=== PATIENT | male | born 1965 | race Caucasian/White ===

== ENCOUNTER 2022-03-10 15:41 | Inpatient (IN) | payer SELFPAY ==
--- NOTE | 2022-03-10 15:52 | Emergency Department Report ---
- General Chief complaint: Weakness Stated complaint: RT SIDE WEAKNESS PUI?: No Time Seen by Provider: 03/10/22 15:41 Source: patient, EMS Mode of arrival: Stretcher Limitations: Language Barrier - History of Present Illness Initial comments: Patient is a 57-year-old male that presents emergency room with complaints of right-sided weakness and right-sided facial droop. Patient states he also has slurred speech. Patient states that his weakness is worsening in his right side. Patient states his symptoms started last night approximately 10 PM. Patient denies chest pain. Patient denies pain. Patient denies shortness of breath. Patient denies headache. Patient complains of nausea and vomiting. Patient has difficulties understanding some of the questions and answering them because of the language barrier. Patient denies recent travel. Patient denies recent international travel. Patient denies exposure to the novel coronavirus. Patient denies sick contacts. Patient denies fever and chills. Patient denies cough. Patient denies diar rahul. Patient denies coming in contact with anybody with symptoms of the novel coronavirus. Complaint: focal weakness -: Sudden Location: R hand Severity: severe - Related Data Allergies Allergy/AdvReac Type Severity Reaction Status Date / Time No Known Allergies Allergy Verified 03/10/22 20:00 ED Review of Systems ROS: Stated complaint: RT SIDE WEAKNESS Other details as noted in HPI Comment: All other systems reviewed and negative ED Past Medical Hx - Past Medical History Previous Medical History?: Yes Hx Hypertension: Yes - Surgical History Past Surgical History?: No - Family History Family history: no significant - Social History Smoking Status: Never Smoker Substance Use Type: None ED Physical Exam - General Limitations: Language Barrier General appearance: alert, in no apparent distress - Head Head exam: Present: atraumatic, normocephalic - Eye Eye exam: Present: normal appearance - ENT ENT exam: Present: mucous membranes moist - Neck Neck exam: Present: normal inspection - Respiratory Respiratory exam: Present: normal lung sounds bilaterally. Absent: respiratory distress - Cardiovascular Cardiovascular Exam: Present: regular rate, normal rhythm. Absent: systolic murmur, diastolic murmur, rubs, gallop - GI/Abdominal GI/Abdominal exam: Present: soft, normal bowel sounds - Rectal Rectal exam: Present: deferred - Extremities Exam Extremities exam: Present: normal inspection - Back Exam Back exam: Present: normal inspection - Neurological Exam Neurological exam: Present: alert, oriented X3 - Psychiatric Psychiatric exam: Present: normal affect, normal mood - Skin Skin exam: Present: warm, dry, intact, normal color. Absent: rash - Assessment Assessment Interval: Baseline - Level of Consciousness 1a. Level of Consciousness: alert/keenly responsive - LOC Questions 1b. LOC Questions: answers both correctly - LOC Command 1c. LOC Commands: performs tasks correctly - Best Gaze 2. Best Gaze: normal - Visual 3. Visual: no visual loss - Facial Palsy 4. Facial Palsy: minor paralysis - Motor Arm 5a. Motor Arm Left: no drift 5b. Motor Arm Right: drift - Motor Leg 6a. Motor Leg Left: no drift 6b. Motor Leg Right: no drift - Limb Ataxia 7. Limb Ataxia: absent - Sensory 8. Sensory: normal - Best Language 9. Best Language: no aphasia - Dysarthria 10. Dysarthria: normal - Extinction and Inattention 11. Extinction/Inattention: no abnormality - Scoring Total Score: 2 Stroke Severity: Minor Stroke ED Course Vital Signs 03/10/22 03/10/22 03/10/22 16:09 16:10 16:16 Temperature 97.8 F Pulse Rate 86 83 83 Respiratory 18 15 16 Rate Blood Pressure 109/74 Blood Pressure 112/62 [Left] O2 Sat by Pulse 98 99 96 Oximetry 03/10/22 03/10/22 03/10/22 16:30 16:46 17:00 Temperature Pulse Rate 81 79 81 Respiratory 11 L 13 13 Rate Blood Pressure 88/56 104/69 99/62 Blood Pressure [Left] O2 Sat by Pulse 96 96 95 Oximetry 03/10/22 03/10/22 03/10/22 17:16 17:30 17:46 Temperature Pulse Rate 75 81 70 Respiratory 15 12 12 Rate Blood Pressure 99/67 102/72 101/69 Blood Pressure [Left] O2 Sat by Pulse 95 98 98 Oximetry 03/10/22 03/10/22 03/10/22 18:00 18:16 18:30 Temperature Pulse Rate 79 76 74 Respiratory 16 10 L 13 Rate Blood Pressure 97/60 91/59 94/63 Blood Pressure [Left] O2 Sat by Pulse 96 97 94 Oximetry 03/10/22 03/10/22 03/10/22 18:46 19:00 19:16 Temperature Pulse Rate 80 79 83 Respiratory 12 13 12 Rate Blood Pressure 96/69 99/69 98/68 Blood Pressure [Left] O2 Sat by Pulse 96 95 97 Oximetry 03/10/22 03/10/22 03/10/22 19:30 19:46 20:00 Temperature Pulse Rate 81 79 82 Respiratory 13 10 L 13 Rate Blood Pressure 107/74 93/57 93/59 Blood Pressure [Left] O2 Sat by Pulse 97 97 96 Oximetry 03/10/22 03/10/22 03/10/22 20:16 20:30 20:46 Temperature Pulse Rate 81 98 H 86 Respiratory 13 14 15 Rate Blood Pressure 92/65 103/70 95/65 Blood Pressure [Left] O2 Sat by Pulse 95 92 95 Oximetry 03/10/22 03/10/22 03/10/22 21:00 21:16 21:30 Temperature Pulse Rate 99 H 92 H 90 Respiratory 13 12 12 Rate Blood Pressure 100/70 111/77 106/74 Blood Pressure [Left] O2 Sat by Pulse 97 94 93 Oximetry 03/10/22 03/10/22 03/10/22 21:46 22:00 22:16 Temperature Pulse Rate 106 H 90 90 Respiratory 10 L 14 14 Rate Blood Pressure 100/72 105/72 102/69 Blood Pressure [Left] O2 Sat by Pulse 96 96 96 Oximetry 03/10/22 03/10/22 03/10/22 22:30 22:46 23:00 Temperature Pulse Rate 84 88 102 H Respiratory 13 19 12 Rate Blood Pressure 106/80 104/67 108/80 Blood Pressure [Left] O2 Sat by Pulse 94 95 97 Oximetry 03/10/22 23:16 Temperature Pulse Rate 84 Respiratory 14 Rate Blood Pressure 103/63 Blood Pressure [Left] O2 Sat by Pulse 97 Oximetry - Reevaluation(s) Reevaluation #1: Initial evaluation done. Code stroke was initiated prior to patient arrival. Patient evaluated in the EMS entrance. Patient was sent directly to CAT scan. 03/10/22 15:40 Reevaluation #2: Patient is hypotensive. Patient given normal saline. 03/10/22 17:20 Patient's blood pressure improved. 03/10/22 17:41 Reevaluation #3: Patient complains of coffee-ground emesis. Patient states his weakness is improving. 03/10/22 18:20 - Consultations Consultation #1: I discussed the case with neurology. Dr. Malik put a note in and placed his recommendations however Dr. Malik recommended Plavix and aspirin and the patient is currently having a GI bleed. Dr. Malik said to hold the Plavix and aspirin. Dr. Malik recommends admission for stroke work-up. 03/10/22 18:25 Consultation #2: Hospitalist consulted for admission. Hospitalist to admit patient. 03/10/22 18:34 ED Medical Decision Making - Lab Data Result diagrams: 03/10/22 16:10 03/10/22 16:10 - EKG Data -: EKG Interpreted by Dc EKG shows normal: sinus rhythm, axis, intervals, QRS complexes, ST-T waves Rate: normal - Radiology Data Radiology results: report reviewed CT head/brain wo con INDICATION: Stroke symptoms. TECHNIQUE: CT head. All CT scans at this location are performed using CT dose reduction for ALARA by means of automated exposure control. COMPARISON: None. FINDINGS: Intracranial: Remote lacunar infarctions seen within the left thalamus and the right sorensen radiata. Small quantity of periventricular and centrum semiovale white matter hypoattenuation most consistent with sequela of chronic microvascular disease. Gracia-white matter differentiation is maintained. No intracranial hemorrhage. No extra axial collection. No hydrocephalus. No herniation. Sinuses: Paranasal sinuses and mastoid air cells are essentially clear. Orbits: Globes are intact. Calvarium: No acute fracture. IMPRESSION: 1. No acute intracranial abnormality. 2. Remote left thalamic and right sorensen radiata lacunar infarctions. CT angio neck HISTORY: stroke sx 100ml of [id number] COMPARISON: None. TECHNIQUE: Routine CTA of the neck is performed. 3-D/MIP reformats were postprocessed. Percentage stenosis is determined by direct quantitative measurements of diseased internal carotid artery diameter compared with normal distal internal carotid artery reference segments or by criteria similar to NASCET where applicable. All CT scans at this location are performed using CT dose reduction for ALARA by means of automated exposure control. FINDINGS: Aortic arch: Ascending aorta is dilated measuring up to 4.4 cm.. Cervical vertebral arteries: No occlusion or hemodynamically significant stenosis. Common Carotid arteries: No occlusion or hemodynamically significant stenosis. Internal carotid arteries: No occlusion or hemodynamically significant steno sis. Additional findings: There are a couple of subpleural pulmonary nodules seen within the apical segment of the right upper lobe measuring up to approximately 9 mm. IMPRESSION: 1. No occlusion or significant stenosis of the carotid or vertebral arteries. 2. There are nodules seen within the apical segment right upper lobe measuring up to approximately 9 mm. Correlate with prior CT chest if available. If not, consider CT chest to further evaluate. . 3. Ascending aortic dilation measuring up to 4.[address] angio head HISTORY: stroke sx 100ml of [id number] COMPARISON: None. TECHNIQUE: CTA of the head is performed after IV contrast. 3-D/MIP reformats were postprocessed. Percentage stenosis is determined by direct quantitative measurements of diseased internal carotid artery diameter compared with normal distal internal carotid artery reference segments or by criteria similar to NASCET where applicable. All CT scans at this location are performed using CT dose reduction for ALARA by means of automated exposure control. FINDINGS: CTA HEAD: Intracranial internal carotid arteries: No occlusion or significant stenosis. Anterior cerebral arteries: No occlusion or significant stenosis. Middle cerebral arteries: No occlusion or significant stenosis. Intracranial vertebral arteries: No occlusion or significant stenosis. Basilar artery: No occlusion or significant stenosis. Posterior cerebral arteries: No occlusion or significant stenosis. No aneurysm. Additional findings: None. IMPRESSION: 1. CTA HEAD: No occlusion or significant stenosis of the major intracranial vasculature. - Medical Decision Making Patient is a 57-year-old male who presents emergency room with right-sided weakness and right-sided facial droop. Patient brought in by EMS. Patient's last known well time 9 PM the day before. Patient had a code stroke initiated upon initial evaluation. Patient went directly to CT. Patient CT of the head was negative. Patient also had a CTA of the head and neck and both were negat adri for large vessel occlusion. Neurology was consulted and evaluated the patient. Neurology recommended admission for stroke work-up as well as Lipitor, aspirin and Plavix. I discussed this with neurology and recommended we hold the Plavix and aspirin since the patient is actually having coffee-ground emesis and hypotension. Patient was hypotensive and the patient was given normal saline and his blood pressure improved. Patient started on a Protonix drip. Patient admitted to the hospitalist service for further evaluation and admission. I consulted GI prior to admission. Critical care time documented due to the multiple reassessments, prolonged time at the bedside, interpretation of diagnostics and labs. - Differential Diagnosis CVA, weakness, hypertension, coffee-ground emesis, GI bleed Critical Care Time: Yes Critical care time in (mins) excluding proc time.: 35 Critical care attestation.: If time is entered above; I have spent that time in minutes in the direct care of this critically ill patient, excluding procedure time. Critical Care Time: 35 minutes ED Disposition Clinical Impression: Right sided weakness, Facial droop, Coffee ground emesis Hypotension Qualifiers: Hypotension type: unspecified hypotension type Qualified Code(s): I95.9 - Hypotension, unspecified CVA (cerebral vascular accident) Qualifiers: CVA mechanism: unspecified Qualified Code(s): I63.9 - Cerebral infarction, unspecified Disposition: 09 ADMITTED INPATIENT Is pt being admited?: Yes Does the pt Need Aspirin: No Condition: Critical Time of Disposition: 18:37
--- NOTE | 2022-03-10 16:08 | Cat Scan Report ---
CT head/brain wo con INDICATION: Stroke symptoms. TECHNIQUE: CT head. All CT scans at this location are performed using CT dose reduction for ALARA by means of automated exposure control. COMPARISON: None. FINDINGS: Intracranial: Remote lacunar infarctions seen within the left thalamus and the right sorensen radiata. Small quantity of periventricular and centrum semiovale white matter hypoattenuation most consistent with sequela of chronic microvascular disease. Garcia-white matter differentiation is maintained. No i ntracranial hemorrhage. No extra axial collection. No hydrocephalus. No herniation. Sinuses: Paranasal sinuses and mastoid air cells are essentially clear. Orbits: Globes are intact. Calvarium: No acute fracture. IMPRESSION: 1. No acute intracranial abnormality. 2. Remote left thalamic and right sorensen radiata lacunar infarctions. I attempted to call [facility] and there was no answer. Signer Name: Rishi Luo MD Signed: 03/10/2022 4:03 PM Workstation Name: [id number]
--- NOTE | 2022-03-10 16:19 | Cat Scan Report ---
CT angio head HISTORY: stroke sx 100ml of [id number] COMPARISON: None. TECHNIQUE: CTA of the head is performed after IV contrast. 3-D/MIP reformats were postprocessed. Per centage stenosis is determined by direct quantitative measurements of diseased internal carotid arter y diameter compared with normal distal internal carotid artery reference segments or by criteria gary lar to NASCET where applicable. All CT scans at this location are performed using CT dose reduction f or ALARA by means of automated exposure control. FINDINGS: CTA HEAD: Intracranial internal carotid arteries: No occlusion or significant stenosis. Anterior cerebral arteries: No occlusion or significant stenosis. Middle cerebral arteries: No occlusion or significant stenosis. Intracranial vertebral arteries: No occlusion or significant stenosis. Basilar artery: No occlusion or significant stenosis. Posterior cerebral arteries: No occlusion or significant stenosis. No aneurysm. Additional findings: None. IMPRESSION: 1. CTA HEAD: No occlusion or significant stenosis of the major intracranial vasculature. Signer Name: Rishi Luo MD Signed: 03/10/2022 4:15 PM Workstation Name: [id number]
--- NOTE | 2022-03-10 16:22 | Cat Scan Report ---
CT angio neck HISTORY: stroke sx 100ml of [id number] COMPARISON: None. TECHNIQUE: Routine CTA of the neck is performed. 3-D/MIP reformats were postprocessed. Percentage st enosis is determined by direct quantitative measurements of diseased internal carotid artery diameter compared with normal distal internal carotid artery reference segments or by criteria similar to YOEL CET where applicable. All CT scans at this location are performed using CT dose reduction for ALARA b y means of automated exposure control. FINDINGS: Aortic arch: Ascending aorta is dilated measuring up to 4.4 cm.. Cervical vertebral arteries: No occlusion or hemodynamically significant stenosis. Common Carotid arteries: No occlusion or hemodynamically significant stenosis. Internal carotid arteries: No occlusion or hemodynamically significant stenosis. Additional findings: There are a couple of subpleural pulmonary nodules seen within the apical segmen t of the right upper lobe measuring up to approximately 9 mm. IMPRESSION: 1. No occlusion or significant stenosis of the carotid or vertebral arteries. 2. There are nodules seen within the apical segment right upper lobe measuring up to approximately 9 mm. Correlate with prior CT chest if available. If not, consider CT chest to further evaluate. . 3. Ascending aortic dilation measuring up to 4.4 cm. Signer Name: Rishi Luo MD Signed: 03/10/2022 4:18 PM Workstation Name: [id number]
[2022-03-10 17:05] LABS: Basophils % (Auto) 0.3 % (0.0-1.8); Eosinophils % (Auto) 0.3 % (0.0-4.3); Hematocrit 32.5 % (35.5-45.6); Hemoglobin 10.6 gm/dl (11.8-15.2); Lymphocytes # (Auto) 3.3 K/mm3 (1.2-5.4); Lymphocytes % (Auto) 49.4 % (13.4-35.0); Mean Corpuscular HGB Conc 33 % (32-34); Mean Corpuscular Volume 94 fl (84-94); Monocytes # (Auto) 0.5 K/mm3 (0.0-0.8); Monocytes % (Auto) 7.9 % (0.0-7.3); Platelet Count 130 K/mm3 (140-440); Red Blood Count 3.44 M/mm3 (3.65-5.03); Red Cell Distribution Width 14.1 % (13.2-15.2)
[2022-03-10 17:06] LABS: Creatine Kinase MB < 1.0 ng/mL (0.0-4.0)
[2022-03-10 17:08] LABS: Alanine Aminotransferase 67 units/L (7-56); Albumin 2.9 g/dL (3.9-5); BUN/Creatinine Ratio 54; Blood Urea Nitrogen 49 mg/dL (9-20); Calcium 8.4 mg/dL (8.4-10.2); Hemolysis Index 3; INR 1.04 (0.87-1.13)
[2022-03-10 17:09] LABS: Partial Thromboplastin Time 35.6 Sec. (24.2-36.6); Thrombin Time 20.5 Sec. (15.1-19.6)
--- NOTE | 2022-03-10 17:43 | Consultation ---
History of Present Illness History of present illness: [facility] Consult Note # Demographics Consult Type: Acute Stroke Level 1 (0-4.5 hrs) Patient Location: Emergency Room First Name: Jaylene Last Name: Date of : 1965 Age: 57 Gender: Male Facility: [facility] Time of Initial Page ( Time): 03/10/2022, 17:33 Time of Return Call ( Time): 03/10/2022, 17:33 # HPI Chief Complaint: weakness (focal) History: 57M with prior stroke (06/2021), HTN, HLD, DM presents with right-sided weakness and facial droop. Symptoms started sometime yesterday afternoon. # Scores Time of exam and NIHSS ( Time): 03/10/2022, 17:34 Level of Consciousness 1a: [0] = Alert; keenly responsive LOC Questions 1b: [0] = Answers both questions correctly LOC Commands 1c: [0] = Performs both tasks correctly Best Gaze 2: [0] = Normal Visual 3: [0] = No visual loss Facial Palsy 4: [2] = Partial paralysis Motor Arm Left 5a: [0] = No drift Motor Arm Right 5b: [1] = Drift Motor Leg Left 6a: [0] = No drift Motor Leg Right 6b: [0] = No drift Limb Ataxia 7: [0] = Absent Sensory 8: [0] = Normal Best Language 9: [0] = No aphasia Dysarthria 10: [0] = Normal Extinction and Inattention 11: [0] = No abnormality NIHSS Total: 3 # Data Head CT: no bleed per radiologist read CTA Head: no large vessel occlusion per radiologist read CTA Neck: patent vessels per radiologist read # Assessment Impression: Ischemic Stroke (Acute) # Plan Thrombolytic/Intervention: NOT IV Thrombolysis or IA Intervention candidate Thrombolytic Exclusion: > 4.5 hours Intraarterial Exclusion: no large vessel occlusion (LVO) Target Blood Pressure: SBP < 220 DBP < 105 Labs: hemoglobin A1c lipid panel Imaging: (urgency: routine): MRI Brain without contrast Diagnostic Test: echo with bubble study Therapy/Evaluation: PT/OT evaluation speech/swallow consultation Medication: ASA 325 x1 then 81 daily Plavix 300 x1 then 75 daily (3 weeks DAPT, then Plavix monotherapy) Atorvastatin 80, then tailor to LDL < 70 goal DVT Prophylaxis: SCD chemical DVT prophylaxis Other: If patient has any neurological deterioration please call me back immediately permissive hypertension telemetry monitoring I have discussed my recommendations with the referring provider Disposition: admit # Logistics Telemedicine: Interactive 2 way audio and visual telecommunication technology was utilized during this visit Electronically signed at 03/10/2022 17:43 (Eastern Time) by Lv Malik MD Physical Examination - Vital Signs Vital Signs: Vital Signs Temp Pulse Resp BP Pulse Ox 97.8 F 86 18 112/62 98 03/10/22 16:09 03/10/22 16:09 03/10/22 16:09 03/10/22 16:09 03/10/22 16:09 Results - Laboratory Findings CBC and BMP: 03/10/22 16:10 03/10/22 16:10 Abnormal Lab Findings: Abnormal Labs 03/10/22 03/10/22 03/10/22 16:10 16:10 16:10 RBC 3.44 L Hgb 10.6 L Hct 32.5 L Plt Count 130 L Lymph % (Auto) 49.4 H [place] % (Auto) 7.9 H PT 15.1 H Thrombin Time 20.5 H Carbon Dioxide 19 L BUN 49 H Glucose 222 H AST 55 H ALT 67 H Total Creatine Kinase 24 L CK-MB (CK-2) Rel Index 4.1 H Total Protein 5.6 L Albumin 2.9 L
[2022-03-10] MEDS ORDERED: PANTOPRAZOLE 80 MG in SODIUM CHLORIDE 0.9% 100 ML IV SCH (19:00)
[2022-03-10] MEDS ORDERED: METOCLOPRAMIDE 10 MG/2 ML INJ IV PRN (21:43)
[2022-03-10] MEDS ORDERED: ACETAMINOPHEN 325 MG TAB PO PRN (21:43)
[2022-03-10] MEDS ORDERED: MORPHINE 2 MG/1 ML INJ IV PRN (21:43)
[2022-03-10] MEDS ORDERED: oxyCODONE /ACETAMINOPHEN 5-325MG TAB PO PRN (21:43)
[2022-03-10] MEDS ORDERED: ONDANSETRON 4 MG/2 ML INJ IV PRN (21:43)
--- NOTE | 2022-03-10 21:43 | History and Physical Report ---
History of Present Illness Date of examination: 03/10/22 Date of admission: 03/10/2022 Chief complaint: Right-sided weakness since a.m. History of present illness: 57-year-old male with history of type 2 diabetes and hypertension, hyperlipidemia and BPH comes in for right-sided weakness and right facial droop which started apparently at around 10 PM yesterday. No syncope. Weakness has improved over the last 16 hours. No shortness of breath. No chest pain. Has difficulty walking. Tendency to fall present. No fever or chills. No recent travel. - Past Medical History Previous Medical History?: Yes --Hypertension: Yes - Surgical History Past Surgical History?: No - Family History Family history: no significant - Social History Smoking Status: Never Smoker Substance Use Type: None Review of Systems ROS: Constitutional no weight loss or weight gain no fever or chills HEENT no sore throat no post nasal drip no diplopia Neck no neck stiffness no lymph gland enlargement Chest and lungs no shortness of breath cough or wheezing CVS no chest pain no diaphoresis no palpitations GI no nausea no vomiting no diarrhea Genitourinary system no dysuria no flank pain Musculoskeletal system no muscle pains 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 Skin no rash no itching Psychiatric no depression no homicidal or suicidal tendencies Hematologic no lymphedema or bruising Endocrine no polydipsia no polyuria no cold intolerance no heat intolerance Medications and Allergies Allergies Allergy/AdvReac Type Severity Reaction Status Date / Time No Known Allergies Allergy Verified 03/10/22 20:00 Home Medications Medication Instructions Recorded Confirmed Last Taken Type AtorvaSTATin 40 mg PO QHS 03/11/22 03/11/22 Unknown History Dutasteride/Tamsulosin HCl 0.4 mg PO QHS 03/11/22 03/11/22 Unknown History FLUoxetine HCL 10 mg PO QDAY 03/11/22 03/11/22 Unknown History Finasteride 5 mg PO QDAY 03/11/22 03/11/22 Unknown History Metformin HCl 1,000 mg PO BID 03/11/22 03/11/22 Unknown History Metoprolol Tartrate 25 mg PO BID 03/11/22 03/11/22 Unknown History glipiZIDE 15 mg PO BID 03/11/22 03/11/22 Unknown History Active Meds: Active Medications Pantoprazole Sodium 80 mg/ (Sodium Chloride) 100 mls @ 10 mls/hr IV DIRECT SARA Exam - Constitutional Vitals: Temp Pulse Resp BP Pulse Ox 97.8 F 99 H 13 100/70 97 03/10/22 16:09 03/10/22 21:00 03/10/22 21:00 03/10/22 21:00 03/10/22 21:00 General appearance: Present: no acute distress, well-nourished - EENT Eyes: Present: PERRL ENT: hearing intact, clear oral mucosa - Neck Neck: Present: supple, normal ROM - Respiratory Respiratory effort: normal Respiratory: bilateral: CTA - Cardiovascular Heart rate: 78 Rhythm: regular Heart Sounds: Present: S1 & S2. Absent: rub, click - Extremities Extremities: pulses symmetrical, No edema Peripheral Pulses: within normal limits - Abdominal General gastrointestinal: Present: soft, non-tender, non-distended, normal bowel sounds Male genitourinary: Present: normal - Rectal Rectal Exam: deferred - Integumentary Integumentary: Present: clear, warm, dry - Musculoskeletal Musculoskeletal: right sided weakness - Psychiatric Psychiatric: appropriate mood/affect, intact judgment & insight - Neurologic Neurologic: CNII-XII intact, focal deficits (Right upper extremity and right lower extremity weakness. 3/5 power.), moves all extremities HEART Score - HEART Score Troponin: Troponin T < 0.010 ng/mL (0.00-0.029) 03/10/22 16:10 Results - Labs CBC & Chem 7: 03/11/22 05:15 03/11/22 05:15 Labs: Laboratory Last Values WBC 6.7 K/mm3 (4.5-11.0) 03/10/22 16:10 RBC 3.44 M/mm3 (3.65-5.03) L 03/10/22 16:10 Hgb 10.6 gm/dl (11.8-15.2) L 03/10/22 16:10 Hct 32.5 % (35.5-45.6) L 03/10/22 16:10 MCV 94 fl (84-94) 03/10/22 16:10 MCH 31 pg (28-32) 03/10/22 16:10 MCHC 33 % (32-34) 03/10/22 16:10 RDW 14.1 % (13.2-15.2) 03/10/22 16:10 Plt Count 130 K/mm3 (140-440) L 03/10/22 16:10 Lymph % (Auto) 49.4 % (13.4-35.0) H 03/10/22 16:10 [place] % (Auto) 7.9 % (0.0-7.3) H 03/10/22 16:10 Eos % (Auto) 0.3 % (0.0-4.3) 03/10/22 16:10 Baso % (Auto) 0.3 % (0.0-1.8) 03/10/22 16:10 Lymph # (Auto) 3.3 K/mm3 (1.2-5.4) 03/10/22 16:10 [place] # (Auto) 0.5 K/mm3 (0.0-0.8) 03/10/22 16:10 Eos # (Auto) 0.0 K/mm3 (0.0-0.4) 03/10/22 16:10 Baso # (Auto) 0.0 K/mm3 (0.0-0.1) 03/10/22 16:10 Seg Neutrophils % 42.1 % (40.0-70.0) 03/10/22 16:10 Seg Neutrophils # 2.8 K/mm3 (1.8-7.7) 03/10/22 16:10 PT 15.1 Sec. (12.2-14.9) H 03/10/22 16:10 INR 1.04 (0.87-1.13) 03/10/22 16:10 APTT 35.6 Sec. (24.2-36.6) 03/10/22 16:10 Thrombin Time 20.5 Sec. (15.1-19.6) H 03/10/22 16:10 Sodium 141 mmol/L (137-145) 03/10/22 16:10 Potassium 4.5 mmol/L (3.6-5.0) 03/10/22 16:10 Chloride 106.5 mmol/L (98-107) 03/10/22 16:10 Carbon Dioxide 19 mmol/L (22-30) L 03/10/22 16:10 Anion Gap 20 mmol/L 03/10/22 16:10 BUN 49 mg/dL (9-20) H 03/10/22 16:10 Creatinine 0.9 mg/dL (0.8-1.3) 03/10/22 16:10 Estimated GFR > 60 ml/min 03/10/22 16:10 BUN/Creatinine Ratio 54 % 03/10/22 16:10 Glucose 222 mg/dL (75-100) H 03/10/22 16:10 Calcium 8.4 mg/dL (8.4-10.2) 03/10/22 16:10 Total Bilirubin 0.50 mg/dL (0.1-1.2) 03/10/22 16:10 AST 55 units/L (5-40) H 03/10/22 16:10 ALT 67 units/L (7-56) H 03/10/22 16:10 Alkaline Phosphatase 88 units/L (35-129) 03/10/22 16:10 Total Creatine Kinase 24 units/L (55-170) L 03/10/22 16:10 CK-MB (CK-2) < 1.0 ng/mL (0.0-4.0) 03/10/22 16:10 CK-MB (CK-2) Rel Index 4.1 (0-4) H 03/10/22 16:10 Troponin T < 0.010 ng/mL (0.00-0.029) 03/10/22 16:10 Total Protein 5.6 g/dL (6.3-8.2) L 03/10/22 16:10 Albumin 2.9 g/dL (3.9-5) L 03/10/22 16:10 Albumin/Globulin Ratio 1.1 % 03/10/22 16:10 Short CBC 03/10/22 03/10/22 03/11/22 Range/Units 16:10 23:03 05:15 WBC 6.7 5.5 (4.5-11.0) K/mm3 Hgb 10.6 L 10.9 L 10.3 L (11.8-15.2) gm/dl Hct 32.5 L 32.5 L 31.5 L (35.5-45.6) % Plt Count 130 L 123 L (140-440) K/mm3 BMP 03/10/22 03/11/22 16:10 05:15 Sodium 141 143 Potassium 4.5 4.3 Chloride 106.5 110.2 H Carbon Dioxide 19 L 21 L BUN 49 H 39 H Creatinine 0.9 0.7 L Glucose 222 H 179 H Calcium 8.4 8.2 L Cardiac Enzymes 03/10/22 Range/Units 16:10 Total Creatine Kinase 24 L (55-170) units/L CK-MB (CK-2) < 1.0 (0.0-4.0) ng/mL Troponin T < 0.010 (0.00-0.029) ng/mL Liver Function 03/10/22 03/11/22 Range/Units 16:10 05:15 Total Bilirubin 0.50 0.50 (0.1-1.2) mg/dL AST 55 H 61 H (5-40) units/L ALT 67 H 70 H (7-56) units/L Alkaline Phosphatase 88 88 (35-129) units/L Albumin 2.9 L 3.2 L (3.9-5) g/dL Assessment and Plan Advance Directives: Yes (Full code) VTE prophylaxis?: Chemical Plan of care discussed with patient/family: Yes - Patient Problems (1) Acute CVA (cerebrovascular accident) Current Visit: Yes Status: Acute Plan to address problem: CVA protocol MRI echocardiogram pending Physical therapy and Occupational Therapy High-dose statins Aspirin initiated Neurology consult requested Neurochecks (2) Hypotension Current Visit: Yes Status: Acute Qualifiers: Hypotension type: idiopathic hypotension Qualified Code(s): I95.0 - Idiopathic hypotension Plan to address problem: IV fluids for now (3) T2DM (type 2 diabetes mellitus) Current Visit: Yes Status: Acute Qualifiers: 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 Plan to address problem: Continue oral hypoglycemics Coverage for now Check hemoglobin A1c (4) BPH (benign prostatic hyperplasia) Current Visit: Yes Status: Chronic Qualifiers: Lower urinary tract symptom presence: symptoms present Plan to address problem: Continue Flomax and finasteride (5) Hyperlipidemia Current Visit: Yes Status: Chronic Qualifiers: Hyperlipidemia type: mixed hyperlipidemia Qualified Code(s): E78.2 - Mixed hyperlipidemia Plan to address problem: Continue statins (6) Depression Current Visit: Yes Status: Chronic Qualifiers: Depression Type: unspecified Qualified Code(s): F32.A - Depression, unspecified Plan to address problem: Continue fluoxetine (7) DVT prophylaxis Current Visit: Yes Status: Acute Plan to address problem: On heparin and GI prophylaxis (8) Advance care planning Current Visit: Yes Status: Acute Plan to address problem: Disease education conducted, care plan discussed, diagnosis and prognosis discussed. Patient acknowledged understanding with care plan. +30 minutes.
[2022-03-10] MEDS ORDERED: SODIUM CHLORIDE 0.9% 1000 ML 1,000 ML IV SCH (21:45)
[2022-03-10] MEDS ORDERED: FAMOTIDINE 20 MG TAB PO SCH (22:00)
[2022-03-10] MEDS: PANTOPRAZOLE 40 MG INJ IV SCH (23:53)
[2022-03-10] MEDS: HEPARIN 5,000 UNIT/1 ML VIAL SUB-Q SCH (23:54)
[2022-03-11 00:08] LABS: Hematocrit 32.5 % (35.5-45.6); Hemoglobin 10.9 gm/dl (11.8-15.2)
[2022-03-11 05:35] LABS: Basophils % (Auto) 0.3 % (0.0-1.8); Eosinophils % (Auto) 0.6 % (0.0-4.3); Hematocrit 31.5 % (35.5-45.6); Hemoglobin 10.3 gm/dl (11.8-15.2); Lymphocytes # (Auto) 2.8 K/mm3 (1.2-5.4); Lymphocytes % (Auto) 50.6 % (13.4-35.0); Mean Corpuscular HGB Conc 33 % (32-34); Mean Corpuscular Volume 94 fl (84-94); Monocytes # (Auto) 0.4 K/mm3 (0.0-0.8); Monocytes % (Auto) 6.8 % (0.0-7.3); Platelet Count 123 K/mm3 (140-440); Red Blood Count 3.35 M/mm3 (3.65-5.03); Red Cell Distribution Width 14.2 % (13.2-15.2)
[2022-03-11 06:40] LABS: Alanine Aminotransferase 70 units/L (7-56); Albumin 3.2 g/dL (3.9-5); BUN/Creatinine Ratio 56; Blood Urea Nitrogen 39 mg/dL (9-20); Calcium 8.2 mg/dL (8.4-10.2); Chol/HDL Ratio 3.39 %; HDL Cholesterol 23 mg/dL (40-59); Hemolysis Index 37; LDL Cholesterol,Direct 30 mg/dL (50-130)
[2022-03-11] MEDS ORDERED: NON-FORMULARY EACH (Finasteride 5 MG) PO SCH (10:00)
[2022-03-11] MEDS ORDERED: FLUOXETINE HCL 10 MG PO SCH (10:00)
[2022-03-11] MEDS ORDERED: glipiZIDE 5 MG TAB PO SCH (10:00)
[2022-03-11] MEDS ORDERED: METFORMIN HCL 1000 MG PO SCH (10:00)
[2022-03-11] MEDS ORDERED: NON-FORMULARY EACH (Metoprolol Tartrate 25 MG) PO SCH (10:00)
[2022-03-11] MEDS ORDERED: GLIPIZIDE 5 MG PO SCH (10:00)
[2022-03-11] MEDS: FINASTERIDE 5 MG TAB PO SCH (10:09)
[2022-03-11] MEDS: PANTOPRAZOLE 40 MG INJ IV SCH ×2 (10:09→22:09)
[2022-03-11] MEDS: FLUoxetine 10 MG TAB PO SCH (10:09)
[2022-03-11] MEDS: metFORMIN 500 MG TAB PO SCH ×2 (10:09→17:32)
[2022-03-11] MEDS: HEPARIN 5,000 UNIT/1 ML VIAL SUB-Q SCH ×2 (10:09→22:04)
[2022-03-11] MEDS: METOPROLOL TARTRATE 25 MG TAB PO SCH ×2 (10:15→22:04)
--- NOTE | 2022-03-11 11:48 | Electrocardiograph Report ---
[facility] Test Date: 2022-03-10 Test Time: 16:22:07 Pat Name: STEPHEN BECERRIL Department: Room: A474 1 Gender: M Lead Network Engineer: RANDALL : 1965 Requested By: ALICE CALVO III Order Number: [id number] Reading MD: Jacobo Blankenship Measurements Intervals [place] Rate: 78 P: 33 [place]: 176 QRS: 13 QRSD: 87 T: 10 QT: 452 QTc: 516 Interpretive Statements Sinus rhythm Prolonged QT interval No previous ECG available for comparison Electronically Signed On 03-11-2022 11:48:19 EDT by Jacobo Blankenship
--- NOTE | 2022-03-11 12:31 | Gastroenterology Consultation ---
History of Present Illness - Reason for Consult Consult date: 03/11/22 GI bleed Requesting physician: ALICE CALVO III - History of Present Illness This is a 57-year-old male with history of CVA earlier this year with residual weakness presented over night to the emergency room for worsening right-sided weakness and right-sided facial droop. Patient was getting worked up for CVA with neurology consult in the emergency room. Noted to have episode of coffee-ground emesis in the emergency room. GI consulted for evaluation for GI bleed. Patient reports having epigastric pain on and off for several days. Also reports having nausea vomiting with coffee-ground emesis prior to emergency room evaluation. Patient does report having black stools about once a day for the past 2 to 3 days. Last bowel movement was yesterday. This morning denies any abdominal pain today. No vomiting episodes overnight. Patient was on aspirin 81 mg at home. No prior history of GI bleed. No prior EGD or colonoscopy. Denies any NSAID use. Medication list reviewed. Past History Past Medical History: stroke Social history: lives with family Family history: no significant family history Medications and Allergies Allergies Allergy/AdvReac Type Severity Reaction Status Date / Time No Known Allergies Allergy Verified 03/10/22 20:00 Home Medications Medication Instructions Recorded Confirmed Last Taken Type AtorvaSTATin 40 mg PO QHS 03/11/22 03/11/22 Unknown History Dutasteride/Tamsulosin HCl 0.4 mg PO QHS 03/11/22 03/11/22 Unknown History FLUoxetine HCL 10 mg PO QDAY 03/11/22 03/11/22 Unknown History Finasteride 5 mg PO QDAY 03/11/22 03/11/22 Unknown History Metformin HCl 1,000 mg PO BID 03/11/22 03/11/22 Unknown History Metoprolol Tartrate 25 mg PO BID 03/11/22 03/11/22 Unknown History glipiZIDE 15 mg PO BID 03/11/22 03/11/22 Unknown History Active Meds: Active Medications Acetaminophen (Acetaminophen 325 Mg Tab) 650 mg PO Q4H PRN PRN Reason: Pain MILD(1-3)/Fever >100.5/BARROW Atorvastatin Calcium (Atorvastatin 40 Mg Tab) 40 mg PO QHS [facility] Last Admin: 03/11/22 00:01 Dose: 40 mg Finasteride (Finasteride 5 Mg Tab) 5 mg PO QDAY [facility] Last Admin: 03/11/22 10:09 Dose: 5 mg Fluoxetine HCl (Fluoxetine 10 Mg Tab) 10 mg PO QDAY [facility] Last Admin: 03/11/22 10:09 Dose: 10 mg Glipizide (Glipizide 5 Mg Tab) 5 mg PO BIDDIAB [facility] Heparin Sodium (Porcine) (Heparin 5,000 Unit/1 Ml Vial) 5,000 unit SUB-Q Q12HR [facility] Last Admin: 03/11/22 10:09 Dose: 5,000 unit Sodium Chloride (Nacl 0.9% 1000 Ml) 1,000 mls @ 75 mls/hr IV DIRECT [facility] Last Admin: 03/11/22 03:07 Dose: 75 mls/hr Metformin HCl (Metformin 500 Mg Tab) 1,000 mg PO BIDDIAB [facility] Last Admin: 03/11/22 10:09 Dose: 1,000 mg Metoclopramide HCl (Metoclopramide 10 Mg/2 Ml Inj) 10 mg IV Q6H PRN PRN Reason: Nausea And Vomiting Metoprolol Tartrate (Metoprolol Tartrate 25 Mg Tab) 25 mg PO BID [facility] Last Admin: 03/11/22 10:15 Dose: 25 mg Morphine Sulfate (Morphine 2 Mg/1 Ml Inj) 2 mg IV Q4H PRN PRN Reason: Pain, Moderate (4-6) Ondansetron HCl (Ondansetron 4 Mg/2 Ml Inj) 4 mg IV Q3H PRN PRN Reason: Nausea And Vomiting Oxycodone/Acetaminophen (Oxycodone /Acetaminophen 5-325mg Tab) 1 tab PO Q6H PRN PRN Reason: Pain, Moderate (4-6) Pantoprazole Sodium (Pantoprazole 40 Mg Inj) 40 mg IV Q12H [facility] Last Admin: 03/11/22 10:09 Dose: 40 mg Sodium Chloride (Sodium Chloride 0.9% 10 Ml Flush Syringe) 10 ml IV BID [facility] Last Admin: 03/11/22 10:09 Dose: 10 ml Sodium Chloride (Sodium Chloride 0.9% 10 Ml Flush Syringe) 10 ml IV PRN PRN PRN Reason: LINE FLUSH Tamsulosin HCl (Tamsulosin 0.4 Mg Cap) 0.4 mg PO QHS [facility] Review of Systems - Review of Systems All systems: negative Constitutional: no fever, no chills Ears, Nose, Throat: no decreased hearing, no difficulty swallowing Cardiovascular: no chest pain Gastrointestinal: abdominal pain, nausea, vomiting, melena, no hematochezia Neurological: weakness, motor disturbance Endocrine: no cold intolerance Hematologic/Lymphatic: no easy bruising Allergic/Immunologic: no wheezing Exam - Constitutional Vital Signs: Temp Pulse Resp BP Pulse Ox 98.1 F 87 16 131/83 95 03/11/22 02:10 03/11/22 10:15 03/11/22 02:10 03/11/22 10:15 03/11/22 05:49 General appearance: no acute distress - EENT ENT: hearing intact - Neck Neck: supple - Respiratory Respiratory effort: normal - Cardiovascular Rhythm: regular Heart Sounds: Present: S1 & S2 - Gastrointestinal General gastrointestinal: Present: soft, non-tender, non-distended - Integumentary Integumentary: Present: clear, warm - Neurologic Neurological: alert and oriented x3 - Psychiatric Psychiatric: appropriate mood/affect - Labs CBC & Chem 7: 03/11/22 05:15 03/11/22 05:15 Lab Results: Laboratory Results - last 24 hr 03/10/22 03/10/22 03/10/22 16:10 16:10 16:10 WBC 6.7 RBC 3.44 L Hgb 10.6 L Hct 32.5 L MCV 94 MCH 31 MCHC 33 RDW 14.1 Plt Count 130 L Lymph % (Auto) 49.4 H [place] % (Auto) 7.9 H Eos % (Auto) 0.3 Baso % (Auto) 0.3 Lymph # (Auto) 3.3 [place] # (Auto) 0.5 Eos # (Auto) 0.0 Baso # (Auto) 0.0 Seg Neutrophils % 42.1 Seg Neutrophils # 2.8 PT 15.1 H INR 1.04 APTT 35.6 Thrombin Time 20.5 H Sodium 141 Potassium 4.5 Chloride 106.5 Carbon Dioxide 19 L Anion Gap 20 BUN 49 H Creatinine 0.9 Estimated GFR > 60 BUN/Creatinine Ratio 54 Glucose 222 H POC Glucose Hemoglobin A1c Calcium 8.4 Total Bilirubin 0.50 AST 55 H ALT 67 H Alkaline Phosphatase 88 Total Creatine Kinase 24 L CK-MB (CK-2) < 1.0 CK-MB (CK-2) Rel Index 4.1 H Troponin T < 0.010 Total Protein 5.6 L Albumin 2.9 L Albumin/Globulin Ratio 1.1 Triglycerides Cholesterol LDL Cholesterol Direct HDL Cholesterol Cholesterol/HDL Ratio 03/10/22 03/11/22 03/11/22 23:03 05:15 05:15 WBC 5.5 RBC 3.35 L Hgb 10.9 L 10.3 L Hct 32.5 L 31.5 L MCV 94 MCH 31 MCHC 33 RDW 14.2 Plt Count 123 L Lymph % (Auto) 50.6 H [place] % (Auto) 6.8 Eos % (Auto) 0.6 Baso % (Auto) 0.3 Lymph # (Auto) 2.8 [place] # (Auto) 0.4 Eos # (Auto) 0.0 Baso # (Auto) 0.0 Seg Neutrophils % 41.7 Seg Neutrophils # 2.3 PT INR APTT Thrombin Time Sodium 143 Potassium 4.3 Chloride 110.2 H Carbon Dioxide 21 L Anion Gap 16 BUN 39 H Creatinine 0.7 L Estimated GFR > 60 BUN/Creatinine Ratio 56 Glucose 179 H POC Glucose Hemoglobin A1c Calcium 8.2 L Total Bilirubin 0.50 AST 61 H ALT 70 H Alkaline Phosphatase 88 Total Creatine Kinase CK-MB (CK-2) CK-MB (CK-2) Rel Index Troponin T Total Protein 6.1 L Albumin 3.2 L Albumin/Globulin Ratio 1.1 Triglycerides 157 H Cholesterol 78 LDL Cholesterol Direct 30 L HDL Cholesterol 23 L Cholesterol/HDL Ratio 3.39 03/11/22 03/11/22 03/11/22 07:22 11:20 12:09 WBC RBC Hgb Hct MCV MCH MCHC RDW Plt Count Lymph % (Auto) [place] % (Auto) Eos % (Auto) Baso % (Auto) Lymph # (Auto) [place] # (Auto) Eos # (Auto) Baso # (Auto) Seg Neutrophils % Seg Neutrophils # PT INR APTT Thrombin Time Sodium Potassium Chloride Carbon Dioxide Anion Gap BUN Creatinine Estimated GFR BUN/Creatinine Ratio Glucose POC Glucose 184 H 250 H Hemoglobin A1c 7.4 H Calcium Total Bilirubin AST ALT Alkaline Phosphatase Total Creatine Kinase CK-MB (CK-2) CK-MB (CK-2) Rel Index Troponin T Total Protein Albumin Albumin/Globulin Ratio Triglycerides Cholesterol LDL Cholesterol Direct HDL Cholesterol Cholesterol/HDL Ratio Assessment and Plan # Coffee ground emesis # Abdominal pain # Melena - concerning for upper GI bleed. - patient being evaluated for possible CVA. -Initially hypotensive in the emergency room but responded to IV fluids and currently normal blood pressure and hemodynamically stable. -Hemoglobin at 10 and stable overnight. -Differentials for upper GI bleed source including peptic ulcer disease, gastritis, esophagitis, malignancy. Rec -Continue with PPI IV twice daily. -Continue to monitor hemoglobin serially and transfuse as needed with hemoglobin goal above 7. -Avoid any NSAIDs. -We will plan for EGD timing to be determined on clinical course. Tentatively for Sunday. # Elevated LFTs - no prior h/o liver disease - will check viral hep panel - will order RUQ US - will follow. - Patient Problems (1) Coffee ground emesis Current Visit: Yes Status: Acute
[2022-03-11 14:51] LABS: Hemoglobin 8.9 gm/dl (11.8-15.2)
[2022-03-11] MEDS: glipiZIDE 5 MG TAB PO SCH (17:32)
[2022-03-11] MEDS ORDERED: NON-FORMULARY EACH (Atorvastatin 40 MG) PO SCH (22:00)
[2022-03-11] MEDS ORDERED: TAMSULOSIN HCL 0.4 MG PO SCH (22:00)
[2022-03-11] MEDS: TAMSULOSIN 0.4 MG CAP PO SCH (22:04)
[2022-03-12 06:23] LABS: Hematocrit 26.5 % (35.5-45.6)
[2022-03-12 07:14] LABS: Hepatitis B Surface Antigen Reactive (Negative); Hepatitis C Virus Antibody Non-Reactive (NonReactive)
--- NOTE | 2022-03-12 07:30 | Progress Note ---
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 Plan to address problem: Continue oral hypoglycemics Coverage for now Check hemoglobin A1c (4) BPH (benign prostatic hyperplasia) Current Visit: Yes Status: Chronic Qualifiers: Lower urinary tract symptom presence: symptoms present Plan to address problem: Continue Flomax and finasteride (5) Hyperlipidemia Current Visit: Yes Status: Chronic Qualifiers: Hyperlipidemia type: mixed hyperlipidemia Qualified Code(s): E78.2 - Mixed hyperlipidemia Plan to address problem: Continue statins (6) Depression Current Visit: Yes Status: Chronic Qualifiers: Depression Type: unspecified Qualified Code(s): F32.A - Depression, unspecified Plan to address problem: Continue fluoxetine (7) DVT prophylaxis Current Visit: Yes Status: Acute Plan to address problem: On heparin and GI prophylaxis (8) Advance care planning Current Visit: Yes Status: Acute Plan to address problem: Disease education conducted, care plan discussed, diagnosis and prognosis discussed. Patient acknowledged understanding with care plan. +30 minutes. Subjective Date of service: 03/11/22 Objective - Constitutional Vitals: Vital Signs - 12hr 03/11/22 03/12/22 03/12/22 20:54 01:00 04:02 Temperature 98.6 F Pulse Rate 81 70 Respiratory 16 Rate Blood Pressure 133/84 O2 Sat by Pulse 98 98 Oximetry 03/12/22 04:24 Temperature 97.5 F L Pulse Rate 77 Respiratory 16 Rate Blood Pressure 93/58 O2 Sat by Pulse 97 Oximetry General appearance: Present: no acute distress, well-nourished - EENT Eyes: PERRL, EOM intact ENT: hearing intact, clear oral mucosa Ears: bilateral: normal - Neck Neck: supple, normal ROM - Respiratory Respiratory effort: normal Respiratory: bilateral: CTA - Breasts Breasts: normal - Cardiovascular Rhythm: regular Heart Sounds: Present: S1 & S2. Absent: gallop, rub Extremities: pulses intact, No edema, normal color, Full ROM - Gastrointestinal General gastrointestinal: Present: soft, non-tender, non-distended, normal bowel sounds - Genitourinary Male genitourinary: normal - Integumentary Integumentary: clear, warm, dry - Musculoskeletal Musculoskeletal: 1, strength equal bilaterally - Neurologic Neurologic: moves all extremities - Psychiatric Psychiatric: memory intact, appropriate mood/affect, intact judgment & insight - Labs CBC & Chem 7: 03/12/22 05:35 03/11/22 05:15 Labs: Abnormal lab results 03/11/22 03/11/22 03/11/22 Range/Units 07:22 11:20 12:09 Hgb (11.8-15.2) gm/dl Hct (35.5-45.6) % POC Glucose 184 H 250 H (70-105) mg/dL Hemoglobin A1c 7.4 H (4-6) % 03/11/22 03/11/22 03/11/22 Range/Units 13:49 16:45 20:23 Hgb 8.9 L (11.8-15.2) gm/dl Hct 26.0 L (35.5-45.6) % POC Glucose 159 H 149 H (70-105) mg/dL Hemoglobin A1c (4-6) % 03/12/22 Range/Units 05:35 Hgb 9.0 L (11.8-15.2) gm/dl Hct 26.5 L (35.5-45.6) % POC Glucose (70-105) mg/dL Hemoglobin A1c (4-6) % HEART Score - HEART Score Troponin: Troponin T < 0.010 ng/mL (0.00-0.029) 03/10/22 16:10
--- NOTE | 2022-03-12 08:59 | Cat Scan Report ---
CT ABDOMEN AND PELVIS WITH CONTRAST HISTORY: abdominal pain. Generalized abdominal pain for the past 3 days, vomiting COMPARISON: None. TECHNIQUE: CT images of the abdomen and pelvis were obtained following administration of intravenous contrast. All CT scans at this location are performed using CT dose reduction for ALARA by means of automated exposure control. CONTRAST: 100 ml of intravenous contrast administered. FINDINGS: Lungs/bones: A few scattered pulmonary nodules are present in the lung bases the largest of which me asures 5 mm in the right lower lobe on image 28 of series 2 and another measuring 5 mm in the left lo wer lobe on image 13. No consolidation or pleural effusion. There are degenerative changes in the lum bar spine with no acute osseous abnormality. Abdomen/pelvis: 1.2 cm hypodensity in the right anterior hepatic segment with mildly nodular appeara nce of the liver caudate hypertrophy. This is not clearly a cyst. The gallbladder, pancreas, spleen, adrenals, kidneys, and proximal GI tract appear unremarkable. Prostate is enlarged and indents the bladder base. Bladder is otherwise unremarkable. No pelvic free fluid and no acute colonic abnormality identified. The appendix and terminal ileum appear normal. IMPRESSION: 1. No acute abnormality identified. 2. Incidental findings as above including probable cirrhotic morphology of the liver with indetermina te hypodensity in the anterior segment. Recommend nonemergent three-phase CT liver for follow-up. 3. Pulmonary nodules in both lung bases measuring up to 5 mm. Please see below recommendations. Multiple incidental pulmonary nodule(s) in both lung bases measuring 5 mm with solid characteristics. Recommendation according to Fleischner Society 2017 Guidelines: Low Risk Patient: No routine follow- up; High Risk Patient: Optional CT at 12 months. Signer Name: Von Curtis MD Signed: 03/12/2022 8:55 AM Workstation Name: [id number]
[2022-03-12 09:47] LABS: Alanine Aminotransferase 64 units/L (7-56); Albumin 2.9 g/dL (3.9-5); Blood Urea Nitrogen 19 mg/dL (9-20); Calcium 7.8 mg/dL (8.4-10.2); Hemolysis Index 3
[2022-03-12 09:48] LABS: BUN/Creatinine Ratio 27
[2022-03-12] MEDS: glipiZIDE 5 MG TAB PO SCH ×2 (10:19→16:17)
[2022-03-12] MEDS: HEPARIN 5,000 UNIT/1 ML VIAL SUB-Q SCH ×2 (10:19→22:06)
[2022-03-12] MEDS: METOPROLOL TARTRATE 25 MG TAB PO SCH ×2 (10:19→22:05)
[2022-03-12] MEDS: FINASTERIDE 5 MG TAB PO SCH (10:19)
[2022-03-12] MEDS: metFORMIN 500 MG TAB PO SCH ×2 (10:19→16:17)
[2022-03-12] MEDS: FLUoxetine 10 MG TAB PO SCH (10:20)
[2022-03-12] MEDS: PANTOPRAZOLE 40 MG INJ IV SCH ×2 (10:22→22:05)
--- NOTE | 2022-03-12 10:53 | Gastroenterology Progress Note ---
Assessment and Plan # Coffee ground emesis # Abdominal pain # Melena - concerning for upper GI bleed. - patient being evaluated for possible CVA. -No recurrent episodes of GI bleeding overnight. -Hemoglobin stable at 9. -Hemodynamically stable. -Suspect upper GI bleed possibly peptic ulcer disease versus variceal bleed. Rec -Continue with PPI IV twice daily. - recommend octreotide drip IV. -Continue to monitor hemoglobin serially and transfuse as needed with hemoglobin goal above 7. -Avoid any NSAIDs. -We will plan for EGD tomorrow. Keep n.p.o. after midnight. Clear liquid diet today. # Elevated LFTs - no prior h/o liver disease -CT abdomen pelvis done and showed mild nodular appearance of the liver, no splenomegaly, no ascites. Focus in the liver with unclear etiology. Recommended to have CT liver protocol triple phase. No large varices noted on the CT scan. Discussed findings with radiology over the phone. -Hepatitis B surface antigen was positive. Will order additional serology labs for hepatitis chronic infection evaluation. - will follow. - Patient Problems (1) Coffee ground emesis Current Visit: Yes Status: Acute Subjective Date of service: 03/12/22 Interval history: Patient reports mild abdominal pain after eating. No nausea vomiting. No bowel movement overnight. Objective - Constitutional Vitals: Temp Pulse Resp BP Pulse Ox 97.5 F L 77 16 93/58 97 03/12/22 04:24 03/12/22 04:24 03/12/22 04:24 03/12/22 04:24 03/12/22 04:24 General appearance: no acute distress - EENT Eyes: EOM intact ENT: hearing intact - Neck Neck: supple - Respiratory Respiratory effort: normal - Cardiovascular Rhythm: regular Heart Sounds: Present: S1 & S2 - Gastrointestinal General gastrointestinal: Present: soft, non-tender, non-distended - Neurologic Neurological: alert and oriented x3 - Psychiatric Psychiatric: appropriate mood/affect - Labs CBC & Chem 7: 03/12/22 05:35 03/12/22 07:49 Labs: Laboratory Results - last 24 hr 03/11/22 03/11/22 03/11/22 11:20 12:09 13:49 Hgb 8.9 L Hct 26.0 L Sodium Potassium Chloride Carbon Dioxide Anion Gap BUN Creatinine Estimated GFR BUN/Creatinine Ratio Glucose POC Glucose 250 H Hemoglobin A1c 7.4 H Calcium Total Bilirubin AST ALT Alkaline Phosphatase Total Protein Albumin Albumin/Globulin Ratio Hepatitis A IgM Ab Hep Bs Antigen Hep B Core IgM Ab Hepatitis C Antibody 03/11/22 03/11/22 03/12/22 16:45 20:23 05:35 Hgb 9.0 L Hct 26.5 L Sodium Potassium Chloride Carbon Dioxide Anion Gap BUN Creatinine Estimated GFR BUN/Creatinine Ratio Glucose POC Glucose 159 H 149 H Hemoglobin A1c Calcium Total Bilirubin AST ALT Alkaline Phosphatase Total Protein Albumin Albumin/Globulin Ratio Hepatitis A IgM Ab Hep Bs Antigen Hep B Core IgM Ab Hepatitis C Antibody 03/12/22 03/12/22 05:35 07:49 Hgb Hct Sodium 135 L D Potassium 4.0 Chloride 102.6 Carbon Dioxide 24 Anion Gap 12 BUN 19 Creatinine 0.7 L Estimated GFR > 60 BUN/Creatinine Ratio 27 Glucose 196 H POC Glucose Hemoglobin A1c Calcium 7.8 L Total Bilirubin 0.50 AST 53 H ALT 64 H Alkaline Phosphatase 78 Total Protein 5.4 L Albumin 2.9 L Albumin/Globulin Ratio 1.2 Hepatitis A IgM Ab Non-reactive Hep Bs Antigen Reactive Hep B Core IgM Ab Non-reactive Hepatitis C Antibody Non-reactive - Imaging CT scan: report reviewed
[2022-03-12] MEDS ORDERED: OCTREOTIDE 50 MCG/1 ML INJ IV ONE (11:30)
[2022-03-12] MEDS: OCTREOTIDE 500 MCG in SODIUM CHLORIDE 0.9% 100 ML IV SCH (12:30)
[2022-03-12 13:50] LABS: INR 0.88 (0.87-1.13)
[2022-03-12] MEDS: TAMSULOSIN 0.4 MG CAP PO SCH (22:06)
[2022-03-13] MEDS: OCTREOTIDE 500 MCG in SODIUM CHLORIDE 0.9% 100 ML IV SCH (03:28)
--- NOTE | 2022-03-13 07:07 | Progress Note ---
Assessment and Plan - Patient Problems (1) GI bleed Current Visit: Yes Status: Acute Plan to address problem: For EGD in Am IV Protonix (2) Acute CVA (cerebrovascular accident) Current Visit: Yes Status: Acute Plan to address problem: CVA protocol MRI echocardiogram pending Physical therapy and Occupational Therapy High-dose statins Aspirin initiated Neurology consult requested Neurochecks (3) Hypotension Current Visit: Yes Status: Acute Qualifiers: Hypotension type: idiopathic hypotension Qualified Code(s): I95.0 - Idiopathic hypotension Plan to address problem: IV fluids for now (4) T2DM (type 2 diabetes mellitus) Current Visit: Yes Status: Acute Qualifiers: Diabetes mellitus predatory animal exterminator insulin use: without fpc use Plan to address problem: Continue oral hypoglycemics Coverage for now Check hemoglobin A1c (5) BPH (benign prostatic hyperplasia) Current Visit: Yes Status: Chronic Qualifiers: Lower urinary tract symptom presence: symptoms present Plan to address problem: Continue Flomax and finasteride (6) Hyperlipidemia Current Visit: Yes Status: Chronic Qualifiers: Hyperlipidemia type: mixed hyperlipidemia Qualified Code(s): E78.2 - Mixed hyperlipidemia Plan to address problem: Continue statins (7) Depression Current Visit: Yes Status: Chronic Qualifiers: Depression Type: unspecified Qualified Code(s): F32.A - Depression, unspecified Plan to address problem: Continue fluoxetine (8) DVT prophylaxis Current Visit: Yes Status: Acute Plan to address problem: On heparin and GI prophylaxis (9) Advance care planning Current Visit: Yes Status: Acute Plan to address problem: Disease education conducted, care plan discussed, diagnosis and prognosis discussed. Patient acknowledged understanding with care plan. +30 minutes. Subjective Date of service: 03/12/22 Objective - Constitutional Vitals: Vital Signs - 12hr 03/12/22 03/12/22 03/12/22 19:37 20:05 21:10 Temperature 98.7 F Pulse Rate 67 69 Respiratory 18 Rate Blood Pressure 152/86 O2 Sat by Pulse 95 98 Oximetry 03/13/22 03/13/22 03/13/22 00:00 00:34 05:12 Temperature 98.6 F 98.6 F Pulse Rate 72 64 Respiratory 18 18 Rate Blood Pressure 127/83 136/85 O2 Sat by Pulse 95 96 Oximetry General appearance: Present: no acute distress, well-nourished - EENT Eyes: PERRL, EOM intact ENT: hearing intact, clear oral mucosa Ears: bilateral: normal - Neck Neck: supple, normal ROM - Respiratory Respiratory effort: normal Respiratory: bilateral: CTA - Breasts Breasts: normal - Cardiovascular Rhythm: regular Heart Sounds: Present: S1 & S2. Absent: gallop, rub Extremities: pulses intact, No edema, normal color, Full ROM - Gastrointestinal General gastrointestinal: Present: soft, non-tender, non-distended, normal bowel sounds - Genitourinary Male genitourinary: normal - Integumentary Integumentary: clear, warm, dry - Musculoskeletal Musculoskeletal: 1, strength equal bilaterally - Neurologic Neurologic: moves all extremities - Psychiatric Psychiatric: memory intact, appropriate mood/affect, intact judgment & insight - Labs CBC & Chem 7: 03/12/22 05:35 03/12/22 07:49 Labs: Abnormal lab results 03/12/22 03/12/22 03/12/22 Range/Units 07:43 07:49 11:08 Sodium 135 L D (137-145) mmol/L Creatinine 0.7 L (0.8-1.3) mg/dL Glucose 196 H (75-100) mg/dL POC Glucose 133 H 182 H (70-105) mg/dL Calcium 7.8 L (8.4-10.2) mg/dL AST 53 H (5-40) units/L ALT 64 H (7-56) units/L Total Protein 5.4 L (6.3-8.2) g/dL Albumin 2.9 L (3.9-5) g/dL 03/12/22 03/12/22 Range/Units 15:34 21:14 Sodium (137-145) mmol/L Creatinine (0.8-1.3) mg/dL Glucose (75-100) mg/dL POC Glucose 205 H 145 H (70-105) mg/dL Calcium (8.4-10.2) mg/dL AST (5-40) units/L ALT (7-56) units/L Total Protein (6.3-8.2) g/dL Albumin (3.9-5) g/dL HEART Score - HEART Score Troponin: Troponin T < 0.010 ng/mL (0.00-0.029) 03/10/22 16:10
--- NOTE | 2022-03-13 09:03 | Ultrasound Report ---
LIMITED RUQ ABDOMINAL ULTRASOUND INDICATION: elevated LFTs. COMPARISON: No relevant prior imaging study available. FINDINGS: Pancreas: Visualized portions show no significant abnormality. Abdominal Aorta: No significant abnormality. IVC: No significant abnormality. Liver: The liver measures 15.9 cm in length. The liver demonstrates a slightly coarse echotexture wi th suggestion of minimal surface nodularity. This could indicate early cirrhotic changes. No liver ma ss is detected on ultrasound. Normal hepatopedal blood flow in the main portal vein. Gallbladder: The gallbladder appears mildly distended measuring 11.6 cm in length. There is a small a mount of sludge in the gallbladder but no shadowing gallstones are detected. Gallbladder wall thickne ss is normal at 2.4 mm. The technologist reports a negative Erickson's sign. Bile ducts: No significant abnormality. Common bile duct measures 4.7 mm. Right kidney: No significant abnormality visualized. Free fluid: None. Additional Findings: None. IMPRESSION: The gallbladder appears mildly distended and contains a small amount of sludge. No shadowing gallston es are detected. Correlate for early acute cholecystitis. Slightly coarse echotexture of the liver suggesting mild cirrhotic changes or other hepatocellular di sease. Signer Name: Nicolas Hughes Jr, MD Signed: 03/13/2022 8:58 AM Workstation Name: [id number]
[2022-03-13] MEDS: metFORMIN 500 MG TAB PO SCH ×2 (09:32→17:58)
[2022-03-13] MEDS: glipiZIDE 5 MG TAB PO SCH ×2 (09:32→17:58)
[2022-03-13] MEDS ORDERED: SODIUM CHLORIDE 0.9% 1000 ML 1,000 ML ONE (09:50)
--- NOTE | 2022-03-13 10:11 | Anesthesia Consultation ---
Anesthesia Consult and Med Hx Date of service: 03/13/22 - Airway Anesthetic Teeth Evaluation: Poor (Multiple missing teeth) ROM Head & Neck: Adequate Mental/Hyoid Distance: Adequate Mallampati Class: Class II Intubation Access Assessment: Probably Good - Pulmonary Exam CTA: Yes - Pre-Operative Health Status ASA Pre-Surgery Classification: ASA3 Proposed Anesthetic Plan: MAC - Pulmonary Hx Smoking: No Hx Respiratory Symptoms: No - Cardiovascular System Hx Hypertension: Yes - Central Nervous System CVA: Yes (With right sided weakness) Hx Psychiatric Problems: Yes (Depression) - Gastrointestinal Hx Gastroesophageal Reflux Disease: Yes - Endocrine Hx Renal Disease: No Hx Cirrhosis: Yes Hx Liver Disease: Yes Hx Non-Insulin Dependent Diabetes: Yes Hx Thyroid Disease: No - Hematic Hx Anemia: Yes - Other Systems Hx Alcohol Use: Yes ( Hx ETOH abuse) Hx Substance Use: Yes (Alcohol) Hx Obesity: No
--- NOTE | 2022-03-13 10:12 | Anesthesia Day of Surgery ---
Anesthesia Day of Surgery - Day of Surgery Patient Examined: Yes Patient H&P Reviewed: Yes Patient is NPO: Yes Beta Blockers: No Cardiac Clearance: No Pulmonary Clearance: No
[2022-03-13] MEDS ORDERED: ONDANSETRON 4 MG/2 ML INJ ONE (10:23)
[2022-03-13] MEDS ORDERED: propofoL 200 MG/20 ML VIAL IV ONE (10:24)
--- NOTE | 2022-03-13 10:29 | Operative Report ---
Operative Report Operative Report: Date: 03/13/2022 Endoscopist: Manpreet Marcus MD (Jenny) EGD REPORT PREOPERATIVE DIAGNOSIS: Hematemesis with coffee-ground emesis, abdominal pain, acute blood loss anemia POSTOPERATIVE DIAGNOSIS: Antral ulcer, gastritis, gastric erosions ESTIMATED BLOOD LOSS: Minimal DESCRIPTION OF PROCEDURE: A high-resolution EGD scope was passed through the oropharynx, esophagus, stomach, and second portion of duodenum. The scope was carefully withdrawn. Retroflexion was performed in the stomach. At the end of the procedure, the scope was cleaned using normal technique. Vital signs monitored continuously throughout. SEDATION: Provided by Anesthesiology Services. COMPLICATIONS: None. FINDINGS: 1. Normal esophagus exam without any signs of esophagitis, varices, stenosis. 2. Two clean-based ulcers in the antrum measuring up to 1 cm without any high risk stigmata. No active bleeding noted. Biopsies obtained from the ulcer edge. 3. Diffuse gastritis with nonbleeding scattered small erosions in the antrum. No active bleeding noted. Biopsies obtained from the antrum and gastric body. 4. A small superficial ulcer in the duodenal bulb noted. No bleeding signs noted. Rest of the duodenal exam was normal. 5. Normal retroflexion view of cardia. RECOMMENDATIONS: 1. Resume clear liquid diet. Advance as tolerated. 2. Monitor H&H. 3. Continue with PPI IV. Can transition to p.o. twice daily dosing tomorrow if no signs of bleeding for 8 weeks total. 4. Avoid NSAIDs 5. Follow-up on pathology results. 6. Will follow. Manpreet Marcus MD (Jenny) [facility]
--- NOTE | 2022-03-13 10:48 | Magnetic Resonance Report ---
MRI BRAIN WITHOUT CONTRAST INDICATION / CLINICAL INFORMATION: stroke. TECHNIQUE: Multisequence, multiplanar images were obtained. COMPARISON: CT head 03/10/2022 FINDINGS: CEREBRAL and CEREBELLAR HEMISPHERES: Chronic infarct in the left basal ganglia involving the anterior left thalamus and genuine of the left internal capsule measures up to 1.6 x 1.2 cm in axial plane. T here are 3 subcentimeter chronic infarcts in the right sorensen radiata on image 104, series 4. No evid ence for acute ischemia/true diffusion restriction. No acute hemorrhage. Mild increased T2 signal is present in the periventricular white matter consistent with chronic microangiopathy. No extra-axial fluid collection. VENTRICLES: Normal in size and configuration for age. VISUALIZED ORBITS: No significant abnormality. VISUALIZED PARANASAL SINUSES: There is mild mucosal thickening throughout all paranasal sinuses. No f luid level or opacification. The mastoid air cells are clear. ADDITIONAL FINDINGS: None. IMPRESSION: 1. No acute intracranial abnormality. 2. Chronic focal infarcts as described. 3. Mild chronic microvascular ischemic changes in the white matter. 4. Mild pansinusitis, chronic. Signer Name: Nicolas Hughes Jr, MD Signed: 03/13/2022 10:44 AM Workstation Name: [id number]
[2022-03-13] MEDS: FINASTERIDE 5 MG TAB PO SCH (11:51)
[2022-03-13] MEDS: HEPARIN 5,000 UNIT/1 ML VIAL SUB-Q SCH (11:51)
[2022-03-13] MEDS: METOPROLOL TARTRATE 25 MG TAB PO SCH (11:51)
[2022-03-13] MEDS: PANTOPRAZOLE 40 MG INJ IV SCH (13:15)
[2022-03-13] MEDS: FLUoxetine 10 MG TAB PO SCH (13:16)
--- NOTE | 2022-03-13 13:25 | Post Anesthesia Evaluation ---
- Post Anesthesia Evaluation Patient Participated: Yes Airway Patent: Yes Stable Respiratory Function: Yes Nausea/Vomiting: No Temp > 96.8F: Yes Pain Manageable: Yes Adequeate Hydration: Yes Anesthesia Complications: No
--- NOTE | 2022-03-13 15:09 | Progress Note ---
Subjective Date of service: 03/13/22 Principal diagnosis: CVA Interval history: The patient is evaluated . Reports Headaches . No Bleed via GI . Reviewed MRI Brain - no new CVA .Moves upper and lower extremity , patient is able to communicate . Reviewed Prior Workup . Avoid ASA for 2 weeks . Risk Factors for CVA discussed . No additional neurological input at present . Needs a out patient Neurological Follow up . Dr. Guthrie Objective - Vital Sign Vital Signs - 12hr 03/13/22 03/13/22 03/13/22 05:12 09:46 10:24 Temperature 98.6 F 98.1 F 98.4 F Pulse Rate 64 66 61 Respiratory 18 11 L 24 Rate Blood Pressure 136/85 138/83 92/62 O2 Sat by Pulse 96 98 100 Oximetry 03/13/22 03/13/22 03/13/22 10:30 10:35 11:00 Temperature 97.8 F Pulse Rate 63 62 59 L Respiratory 22 24 24 Rate Blood Pressure 88/58 100/73 113/74 O2 Sat by Pulse 99 99 99 Oximetry 03/13/22 03/13/22 11:27 11:30 Temperature 97.4 F L Pulse Rate 63 Respiratory 18 Rate Blood Pressure 143/84 O2 Sat by Pulse 98 95 Oximetry - Laboratory Findings CBC and BMP: 03/12/22 05:35 03/12/22 07:49 Abnormal Lab Findings: Abnormal Labs 03/10/22 03/10/22 03/10/22 16:10 16:10 16:10 RBC 3.44 L Hgb 10.6 L Hct 32.5 L Plt Count 130 L Lymph % (Auto) 49.4 H [place] % (Auto) 7.9 H PT 15.1 H Thrombin Time 20.5 H Sodium Chloride Carbon Dioxide 19 L BUN 49 H Creatinine Glucose 222 H POC Glucose Hemoglobin A1c Calcium AST 55 H ALT 67 H Total Creatine Kinase 24 L CK-MB (CK-2) Rel Index 4.1 H Total Protein 5.6 L Albumin 2.9 L Triglycerides LDL Cholesterol Direct HDL Cholesterol 03/10/22 03/11/22 03/11/22 23:03 05:15 05:15 RBC 3.35 L Hgb 10.9 L 10.3 L Hct 32.5 L 31.5 L Plt Count 123 L Lymph % (Auto) 50.6 H [place] % (Auto) PT Thrombin Time Sodium Chloride 110.2 H Carbon Dioxide 21 L BUN 39 H Creatinine 0.7 L Glucose 179 H POC Glucose Hemoglobin A1c Calcium 8.2 L AST 61 H ALT 70 H Total Creatine Kinase CK-MB (CK-2) Rel Index Total Protein 6.1 L Albumin 3.2 L Triglycerides 157 H LDL Cholesterol Direct 30 L HDL Cholesterol 23 L 03/11/22 03/11/22 03/11/22 07:22 11:20 12:09 RBC Hgb Hct Plt Count Lymph % (Auto) [place] % (Auto) PT Thrombin Time Sodium Chloride Carbon Dioxide BUN Creatinine Glucose POC Glucose 184 H 250 H Hemoglobin A1c 7.4 H Calcium AST ALT Total Creatine Kinase CK-MB (CK-2) Rel Index Total Protein Albumin Triglycerides LDL Cholesterol Direct HDL Cholesterol 03/11/22 03/11/22 03/11/22 13:49 16:45 20:23 RBC Hgb 8.9 L Hct 26.0 L Plt Count Lymph % (Auto) [place] % (Auto) PT Thrombin Time Sodium Chloride Carbon Dioxide BUN Creatinine Glucose POC Glucose 159 H 149 H Hemoglobin A1c Calcium AST ALT Total Creatine Kinase CK-MB (CK-2) Rel Index Total Protein Albumin Triglycerides LDL Cholesterol Direct HDL Cholesterol 03/12/22 03/12/22 03/12/22 05:35 07:43 07:49 RBC Hgb 9.0 L Hct 26.5 L Plt Count Lymph % (Auto) [place] % (Auto) PT Thrombin Time Sodium 135 L D Chloride Carbon Dioxide BUN Creatinine 0.7 L Glucose 196 H POC Glucose 133 H Hemoglobin A1c Calcium 7.8 L AST 53 H ALT 64 H Total Creatine Kinase CK-MB (CK-2) Rel Index Total Protein 5.4 L Albumin 2.9 L Triglycerides LDL Cholesterol Direct HDL Cholesterol 03/12/22 03/12/22 03/12/22 11:08 15:34 21:14 RBC Hgb Hct Plt Count Lymph % (Auto) [place] % (Auto) PT Thrombin Time Sodium Chloride Carbon Dioxide BUN Creatinine Glucose POC Glucose 182 H 205 H 145 H Hemoglobin A1c Calcium AST ALT Total Creatine Kinase CK-MB (CK-2) Rel Index Total Protein Albumin Triglycerides LDL Cholesterol Direct HDL Cholesterol
--- NOTE | 2022-03-13 20:06 | Discharge Summary ---
Providers - Providers Date of Admission: 03/10/22 21:43 Date of discharge: 03/13/22 Attending physician: DEION HUIZAR 03/10/22 18:58 Consult to Physician [CONS] Routine Comment: Consulting Provider: ALEC LANGLEY Physician Instructions: Reason For Exam: gi bleed 03/10/22 21:43 Consult to Physician [CONS] Routine Comment: Consulting Provider: SOFIYA STERN Physician Instructions: Reason For Exam: CVA 03/10/22 21:49 Occupational Therapy Evaluate and Treat [CONS] Routine Comment: Reason For Exam: Neuro deficits Physical Therapy Evaluation and Treat [CONS] Routine Comment: Reason For Exam: Neuro deficits Primary care physician: BAG TESTER Hospitalization Condition: Critical Disposition: 01 HOME / SELF CARE / HOMELESS - Discharge Diagnoses (1) GI bleed Status: Acute (2) Acute CVA (cerebrovascular accident) Status: Acute (3) Hypotension Status: Acute Qualifiers: Hypotension type: idiopathic hypotension Qualified Code(s): I95.0 - Idiopathic hypotension (4) T2DM (type 2 diabetes mellitus) Status: Acute Qualifiers: 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 keno terminal operator use (5) BPH (benign prostatic hyperplasia) Status: Chronic Qualifiers: Lower urinary tract symptom presence: symptoms present (6) Hyperlipidemia Status: Chronic Qualifiers: Hyperlipidemia type: mixed hyperlipidemia Qualified Code(s): E78.2 - Mixed hyperlipidemia (7) Depression Status: Chronic Qualifiers: Depression Type: unspecified Qualified Code(s): F32.A - Depression, unspecified (8) DVT prophylaxis Status: Acute (9) Advance care planning Status: Acute Exam - Constitutional Vitals: Temp Pulse Resp BP Pulse Ox 97.4 F L 74 18 143/84 95 03/13/22 11:30 03/13/22 17:00 03/13/22 11:30 03/13/22 11:30 03/13/22 11:30 Plan Follow up with: PRIMARY MD ERIK [Primary Care Provider] - 7 Days
[2022-03-13 20:16] VITALS: BP 119/84
== END 2022-03-13 20:45 | disposition home or self-care (01) | DRG 379 ==
LOC: ED 15:41 → 4A 21:43
PROVIDERS: ADMIT Internal Medicine; ATTEND Internal Medicine
PROC: 0DB68ZX Excision of Stomach, Via Natural or Artificial Opening Endoscopic, Diagnostic (ICD-10-PCS; principal; 2022-03-13)
DX: K29.01 Acute gastritis with bleeding (principal); N40.0 Benign prostatic hyperplasia without lower urinary tract symptoms; I10 Essential (primary) hypertension; E11.9 Type 2 diabetes mellitus without complications; F32.A Depression, unspecified; E78.2 Mixed hyperlipidemia; K21.9 Gastro-esophageal reflux disease without esophagitis
CPT/HCPCS: 36415; 70450; 70496; 70498; 70551; 74177; 76705; 80053; 80061; 80074; 82550; 82553; 82962; 83036; 84484; 85014; 85018; 85025; 85610; 85670; 85730; 86705; 86706; 86707; 87350; 87517; 88305; 93005; 93306; 99291; G0378; J2501; J3490; C8929; C9113; J1644; J2354; J2405; J2704; J7030; Q9967